=== PATIENT | male | born 1975 | race Caucasian/White ===

== ENCOUNTER 2020-10-10 02:10 | Emergency (ER) | payer OTHER ==
[~2020-10-10] VITALS: Ht 162.6 cm; Wt 88.6 kg
--- NOTE | 2020-10-10 02:30 | NUR ---
cleansed occiput with ns superficial serous sang scant placed dry guaze secured with tape band aide to bridge of nose right upper check scabbed. denies any pain.
[2020-10-10 02:41] VITALS: BP 128/88
== END 2020-10-10 02:32 ==
LOC: ER 02:11
DX: S00.01XA Abrasion of scalp, initial encounter (principal); S00.81XA Abrasion of other part of head, initial encounter; S09.90XA Unspecified injury of head, initial encounter; S00.31XA Abrasion of nose, initial encounter; Z72.89 Other problems related to lifestyle; V89.2XXA Person injured in unspecified motor-vehicle accident, traffic, initial encounter; W22.11XA Striking against or struck by driver side automobile airbag, initial encounter; Y93.89 Activity, other specified; Y92.89 Other specified places as the place of occurrence of the external cause; Y99.8 Other external cause status
CPT/HCPCS: 99283